=== PATIENT | male | born 1965 | race Caucasian/White ===

== ENCOUNTER 2016-11-13 22:37 | Emergency (ER) | payer MEDICAID ==
[~2016-11-13] VITALS: Ht 193 cm; Wt 103.0 kg
[2016-11-13 23:19] LABS: Basophils # (auto) 0.1 uL; Basophils % (auto) 1.2 % (0.0-2.0); CONDITION Y; Eosinophils # (auto) 0.2 uL; Eosinophils % (auto) 2.7 % (0.0-7.0); Hematocrit 42.6 % (41.0-53.0); Hemoglobin 14.4 g/dL (13.5-17.5); Lymphocytes # (auto) 2.5 uL; Lymphocytes % (auto) 37.3 % (10.0-50.0); Mean Corpuscular Hemoglobin 30.9 pg (28.0-32.0); Mean Corpuscular Hgb Conc. 33.8 g/dL (32.0-36.0); Mean Corpuscular Volume 91.3 fL (80.0-100.0); Mean Platelet Volume 8.5 fL (7.4-10.4); Monocytes # (auto) 0.5 uL; Monocytes % (auto) 6.7 % (0.0-12.0); Neutrophils # (auto) 3.6 uL; Neutrophils % (auto) 52.1 % (37.0-80.0); Platelet Count (auto) 279 10^3/uL (140-450); Red Cell Distribution Width 13.2 % (11.6-16.0); White Blood Cell 6.8 10^3/uL (4.4-10.8)
[2016-11-13 23:45] LABS: Albumin 4.5 g/dL (3.4-5.0); Potassium 3.4 mmol/L (3.5-5.1)
[2016-11-13 23:50] LABS: Bilirubin, Total 0.7 mg/dL (0.2-1.0); Total Protein 8.4 g/dL (6.4-8.2)
[2016-11-14 07:12] LABS: Urine Bilirubin Negative (Negative); Urine Blood Negative /uL (Negative); Urine Color Yellow (Yellow); Urine Glucose Normal (Normal); Urine Ketone 2+ (Negative); Urine Mucus FEW (None Seen); Urine Nitrite Negative (Negative); Urine RBC 1 /hpf (0 - 3); Urine Squamous Epithelial Cell FEW /hpf (<5); Urine Urobilinogen Normal (Negative); Urine pH 5.5 (5.0-8.0)
[2016-11-14] MEDS ORDERED: SODIUM CHLORIDE 0.9% 1,000 ML IV ONE (07:22)
[2016-11-14] MEDS ORDERED: diphenhdrAMINE HCL 50 MG/1 ML VL IV ONE (07:30)
[2016-11-14 09:29] VITALS: BP 126/66
== END 2016-11-14 11:40 | disposition home or self-care (01) ==
LOC: ER 22:37 → EDBD 22:37 → ER 11-14 11:40
DX: S10.96XA Insect bite of unspecified part of neck, initial encounter (principal); L08.9 Local infection of the skin and subcutaneous tissue, unspecified; W57.XXXA Bitten or stung by nonvenomous insect and other nonvenomous arthropods, initial encounter; Y93.89 Activity, other specified; Y92.89 Other specified places as the place of occurrence of the external cause; Y99.8 Other external cause status
CPT/HCPCS: 36415; 71020; 80053; 80307; 81001; 83735; 85025; 96361; 96374; 99285; J1200; J7030

== ENCOUNTER 2017-01-16 16:25 | Emergency (ER) | payer MEDICAID ==
[~2017-01-16] VITALS: Ht 193 cm; Wt 104.3 kg
[2017-01-16 20:34] LABS: Basophils # (auto) 0 uL; Basophils % (auto) 0.4 % (0.0-2.0); Eosinophils # (auto) 0.2 uL; Eosinophils % (auto) 2.3 % (0.0-7.0); Hematocrit 43.7 % (41.0-53.0); Hemoglobin 14.8 g/dL (13.5-17.5); Lymphocytes # (auto) 1.3 uL; Lymphocytes % (auto) 15.5 % (10.0-50.0); Mean Corpuscular Hgb Conc. 33.9 g/dL (32.0-36.0); Mean Corpuscular Volume 91.6 fL (80.0-100.0); Monocytes # (auto) 0.4 uL; Monocytes % (auto) 4.7 % (0.0-12.0); Neutrophils # (auto) 6.6 uL; Neutrophils % (auto) 77.1 % (37.0-80.0); Platelet Count (auto) 212 10^3/uL (140-450); Red Blood Cells 4.77 10^6/uL (4.5-5.90); Red Cell Distribution Width 12.7 % (11.8-14.3); White Blood Cell 8.5 10^3/uL (4.4-10.8)
[2017-01-16 20:50] LABS: Albumin 3.9 g/dL (3.4-5.0); BUN/Creatinine Ratio 10.3; Bilirubin, Total 0.5 mg/dL (0.2-1.0); Calcium 8.6 mg/dL (8.5-10.1); Potassium 3.8 mmol/L (3.5-5.1); Total Protein 7.8 g/dL (6.4-8.2)
[2017-01-16 23:28] VITALS: BP 126/93
[2017-01-17] MEDS ORDERED: PENICILLIN G BENZ 1200000 UNITS/2 ML SYRG IM ONE ×2 (00:45→01:15)
[2017-01-17] MEDS ORDERED: HYDROmorphone HCL 2 MG/ML VL IM ONE (00:45)
[2017-01-17] MEDS ORDERED: ONDANSETRON HCL 4 MG/2 ML VIAL IM ONE (00:45)
== END 2017-01-17 02:40 | disposition home or self-care (01) ==
LOC: ER 16:28
DX: H92.03 Otalgia, bilateral (principal); M54.12 Radiculopathy, cervical region; M19.90 Unspecified osteoarthritis, unspecified site; R51 Headache
CPT/HCPCS: 36415; 70450; 80053; 96372; 99285; J0561; J1170; J2405

== ENCOUNTER 2018-05-05 11:47 | Emergency (ER) | payer MEDICAID ==
[~2018-05-05] VITALS: Ht 188 cm; Wt 99.8 kg
[2018-05-05 14:31] VITALS: BP 151/77
== END 2018-05-05 15:35 | disposition home or self-care (01) ==
LOC: ER 11:47 → EDBD 11:47 → ER 15:35
DX: I87.2 Venous insufficiency (chronic) (peripheral) (principal)
CPT/HCPCS: 73630

== ENCOUNTER 2018-05-27 12:48 | Emergency (ER) | payer MEDICAID ==
[~2018-05-27] VITALS: Ht 190.5 cm; Wt 95.7 kg
[2018-05-27 13:17] VITALS: BP 126/88
[2018-05-27] MEDS ORDERED: IOHEXOL 300 MG/ML 100ML BOTTLE IJ ONE (13:26)
[2018-05-27] MEDS ORDERED: ONDANSETRON HCL 4 MG/2 ML VIAL IV ONE (14:15)
[2018-05-27] MEDS ORDERED: MORPHINE SULFATE 4 MG/ML SYR/VIAL IV ONE (14:15)
[2018-05-27 16:09] LABS: BUN/Creatinine Ratio 11.5; Calcium 8.6 mg/dL (8.5-10.1); Potassium 3.9 mmol/L (3.5-5.1)
[2018-05-27 16:17] LABS: Basophils # (auto) 0 uL; Basophils % (auto) 0.3 % (0.0-2.0); Eosinophils # (auto) 0.1 uL; Eosinophils % (auto) 2.3 % (0.0-7.0); Hemoglobin 15.2 g/dL (13.5-17.5); Lymphocytes # (auto) 1.2 uL; Lymphocytes % (auto) 22.3 % (10.0-50.0); Mean Corpuscular Hemoglobin 30.2 pg (28.0-32.0); Mean Corpuscular Volume 91.5 fL (80.0-100.0); Monocytes # (auto) 0.3 uL; Monocytes % (auto) 4.7 % (0.0-12.0); Neutrophils # (auto) 3.8 uL; Neutrophils % (auto) 70.4 % (37.0-80.0); Nucleated Red Blood Cells % 0.3 %; Platelet Count (auto) 226 10^3/uL (140-450); Red Blood Cells 5.02 10^6/uL (4.5-5.90); Red Cell Distribution Width 12.9 % (11.8-14.3); White Blood Cell 5.4 10^3/uL (4.4-10.8)
[2018-05-27 16:27] LABS: Urine Bacteria NONE SEEN /hpf (None Seen); Urine Blood Negative /uL (Negative); Urine Specific Gravity 1.029 (1.001-1.035); Urine WBC 1 /hpf (0 - 3)
== END 2018-05-27 17:25 | disposition home or self-care (01) ==
LOC: EDBD 12:48 → ER 12:53
DX: S20.212A Contusion of left front wall of thorax, initial encounter (principal); W19.XXXA Unspecified fall, initial encounter; Y93.E1 Activity, personal bathing and showering; Y99.8 Other external cause status; Y92.89 Other specified places as the place of occurrence of the external cause
CPT/HCPCS: 36415; 70450; 71260; 72125; 74177; 80048; 81001; 85025; 96374; 96375; 99284; J2270; J2405; Q9967

== ENCOUNTER 2018-06-23 06:14 | Emergency (ER) | payer MEDICAID ==
[~2018-06-23] VITALS: Ht 185.4 cm; Wt 90.7 kg
[2018-06-23] MEDS ORDERED: KETOROLAC TROMETH 60MG/2ML VIAL IM ONE (07:15)
[2018-06-23 07:16] VITALS: BP 122/75
== END 2018-06-23 09:04 | disposition home or self-care (01) ==
LOC: EDBD 06:14 → ER 06:19
DX: S82.141A Displaced bicondylar fracture of right tibia, initial encounter for closed fracture (principal); X50.1XXA Overexertion from prolonged static or awkward postures, initial encounter; Y93.89 Activity, other specified; Y99.8 Other external cause status; Y92.89 Other specified places as the place of occurrence of the external cause
CPT/HCPCS: 29505; 73562; 96372; 99283; J1885

== ENCOUNTER 2018-08-03 05:53 | Emergency (ER) | payer MEDICAID ==
[~2018-08-03] VITALS: Ht 193 cm; Wt 104.3 kg
[2018-08-03 07:31] VITALS: BP 144/87
[2018-08-03] MEDS ORDERED: HYDROcodone-ACET 5/325MG TAB PO ONE (07:45)
[2018-08-03] MEDS ORDERED: KETOROLAC TROMETH 30 MG/ML 1ML VIAL IV ONE (07:45)
[2018-08-03] MEDS ORDERED: KETOROLAC TROMETH 60MG/2ML VIAL IM ONE (07:45)
== END 2018-08-03 08:53 | disposition home or self-care (01) ==
LOC: ER 05:53 → EDBD 05:53 → ER 08:53
DX: S82.141D Displaced bicondylar fracture of right tibia, subsequent encounter for closed fracture with routine healing (principal); W18.39XD Other fall on same level, subsequent encounter
CPT/HCPCS: 29505; 73562; 96374; 99283; J1885

== ENCOUNTER 2021-01-08 11:03 | Emergency (ER) | payer MEDICAID ==
[~2021-01-08] VITALS: Ht 193 cm; Wt 106.6 kg
[2021-01-08 12:04] LABS: Basophils # (auto) 0.1 10 ^3/uL (0-0.2); Eosinophils # (auto) 0.3 10 ^3/uL (0-0.8); Eosinophils % (auto) 5.1 % (0.0-7.0); Hematocrit 39.6 % (41.0-53.0); Hemoglobin 13.7 g/dL (13.5-17.5); Lymphocytes # (auto) 1.9 10 ^3/uL (0.4-5.4); Mean Corpuscular Hemoglobin 32.2 pg (28.0-32.0); Mean Corpuscular Hgb Conc. 34.5 g/dL (32.0-36.0); Mean Corpuscular Volume 93.3 fL (80.0-100.0); Monocytes # (auto) 0.3 10 ^3/uL (0-1.3); Monocytes % (auto) 5.4 % (0.0-12.0); Neutrophils # (auto) 3.3 10 ^3/uL (1.6-8.6); Neutrophils % (auto) 56.5 % (37.0-80.0); Nucleated Red Blood Cells % 0.1 %; Red Blood Cells 4.25 10^6/uL (4.5-5.90); White Blood Cell 5.8 10^3/uL (4.4-10.8)
[2021-01-08 12:08] VITALS: BP 145/86
[2021-01-08 12:30] LABS: Alanine Aminotransferase 34 U/L (16-61); Albumin 3.5 g/dL (3.4-5.0); Anion Gap 6 (5-15); Aspartate Aminotransferase 24 U/L (15-37); Blood Urea Nitrogen 12 mg/dL (7-18); Calcium 8.6 mg/dL (8.5-10.1); Carbon Dioxide 26 mmol/L (21-32); Chloride 105 mmol/L (98-107); Glucose 115 mg/dL (74-106); Lipase 71 U/L (73-393); Potassium 3.7 mmol/L (3.5-5.1); Sodium 137 mmol/L (136-145)
[2021-01-08 12:35] LABS: Alkaline Phosphatase 71 U/L (45-117); BUN/Creatinine Ratio 9.8; Bilirubin, Total 0.4 mg/dL (0.2-1.0); GFR African American 79 mL/min; GFR Non-African American 65 mL/min; Total Protein 7.5 g/dL (6.4-8.2)
== END 2021-01-08 17:08 | disposition left against medical advice (07) ==
LOC: ER 11:03
DX: R07.89 Other chest pain (principal); F41.9 Anxiety disorder, unspecified; R41.0 Disorientation, unspecified
CPT/HCPCS: 36415; 71045; 80053; 83690; 83880; 84484; 85025; 85379; 93005

== ENCOUNTER 2022-08-19 15:58 | Emergency (ER) | payer MEDICAID ==
[~2022-08-19] VITALS: Ht 185.4 cm; Wt 102.0 kg
[2022-08-19] MEDS ORDERED: ONDANSETRON HCL 4 MG/2 ML VIAL IV ONE (16:30)
[2022-08-19] MEDS ORDERED: ASPirin 81 mg TAB PO ONE (16:30)
[2022-08-19] MEDS ORDERED: LORazepam 2MG/ML-1ML VIAL IV ONE (16:45)
[2022-08-19 16:50] LABS: Basophils # (auto) 0.1 10 ^3/uL (0-0.2); Basophils % (auto) 0.9 % (0.0-2.0); Eosinophils # (auto) 0.2 10 ^3/uL (0-0.8); Hematocrit 41.4 % (41.0-53.0); Hemoglobin 13.9 g/dL (13.5-17.5); Lymphocytes # (auto) 1.5 10 ^3/uL (0.4-5.4); Lymphocytes % (auto) 17.3 % (10.0-50.0); Mean Corpuscular Hemoglobin 30.4 pg (28.0-32.0); Mean Corpuscular Hgb Conc. 33.6 g/dL (32.0-36.0); Mean Corpuscular Volume 90.5 fL (80.0-100.0); Monocytes # (auto) 0.7 10 ^3/uL (0-1.3); Monocytes % (auto) 8.2 % (0.0-12.0); Neutrophils % (auto) 71.6 % (37.0-80.0); Nucleated Red Blood Cells % 0.2 %; Red Blood Cells 4.58 10^6/uL (4.5-5.90); Red Cell Distribution Width 13.5 % (11.8-14.3); White Blood Cell 8.4 10^3/uL (4.4-10.8)
[2022-08-19 17:10] LABS: Albumin 4.3 g/dL (3.4-5.0); Calcium 9.6 mg/dL (8.5-10.1); Potassium 3.9 mmol/L (3.5-5.1)
[2022-08-19 17:13] LABS: BUN/Creatinine Ratio 14.8 (10.0-20.0); Total Protein 7.4 g/dL (6.4-8.2)
[2022-08-19] MEDS ORDERED: CEFTRIAXONE SODIUM 2 GM in D5W 5% 100 ML IV ONE ×2 (19:30→20:45)
[2022-08-19] MEDS ORDERED: AZITHROMYCIN 250 MG TAB PO ONE (19:30)
[2022-08-19] MEDS ORDERED: CEFTRIAXONE 1 GM/50 ML IV ONE (21:00)
[2022-08-19] MEDS ORDERED: DEXTROSE IV ONE (21:00)
[2022-08-19] MEDS ORDERED: cefTRIAXone 1GM/50ML D5W 100 ML IV ONE (21:11)
[2022-08-19] MEDS ORDERED: IOHEXOL 350 MG/ML 100ML IJ ONE (21:20)
[2022-08-20 03:19] VITALS: BP 136/81
== END 2022-08-20 03:35 | disposition home or self-care (01) ==
LOC: ER 15:58 → EDBD 15:58 → ER 08-20 03:35
DX: R60.0 Localized edema (principal); F12.10 Cannabis abuse, uncomplicated; R06.02 Shortness of breath
CPT/HCPCS: 36415; 71045; 71275; 80053; 80320; 83880; 84484; 85025; 85379; 93005; 93970; 96365; 96375; 99285; J0696; J2060; J7060; Q9967; J2405